=== PATIENT | male | born 1965 | race Caucasian/White ===

== ENCOUNTER → 2024-08-22 14:25 | Outpatient (REF) | payer OTHER, SELFPAY | LOC: DHSLP 14:25 | PROVIDERS: ATTENDING PHYSICIAN Internal Medicine Critical Care Medicine; FAMILY PHYSICIAN Student in an Organized Health Care Education/Training Program | DX: G47.33 Obstructive sleep apnea (adult) (pediatric) (principal) | CPT/HCPCS: 95800 ==